=== PATIENT | male | born 1945 | race Caucasian/White ===

== ENCOUNTER 2021-03-02 05:58 | Inpatient (IN) | payer MEDICARE, OTHER ==
[~2021-03-02] VITALS: Ht 177.8 cm; Wt 86.2 kg
[~2021-03-02 05:58] MED LIST: AMLODIPINE BES2.5 MG PO; AMLODIPINE BESYL5 MG PO; ARTIFICIAL TEAR15 M4 EYERT; ASPIRIN CHEWABL81 MG PO; BRIMONIDINE EYELF; CEFUROXIME500 MG PO; DUREZOL 0.05% EYELF; ELIQUIS 5 MG TAB5 MG PO; FLOMAX 0.4 MG0.4 MG PO; IMDUR ER TAB 3030 MG PO; K-DUR TAB 20 M20 MEQ PO; LIPITOR40 MG PO; LOPRESSOR 25 MG25 MG PO; METOPROLOL TART25 MG PO; MULTAQ400 MG PO; NITROGLYCERIN0.4 MG SL; OMEPRAZOLE20 MG PO; PRINIVIL5 MG PO; PROAIR HFA8.5 GM INH; PROSCAR5 MG PO; ZOFRAN ODT 4 MG4 MG SL
[2021-03-02 06:19] LABS: HEMOGLOBIN 15.4 gm/dl (14.0-17.5); RED BLOOD COUNT 5.13 M/UL (4.20-5.50); WHITE BLOOD COUNT 10.8 K/UL (4.5-11.0)
[2021-03-02 07:01] LABS: BUN/CREATININE RATIO 22 (0-10)
[2021-03-02] MEDS ORDERED: MULTAQ 400 MG400 MG PO (14:24)
[2021-03-02] MEDS ORDERED: ELIQUIS5 MG PO (14:25)
[2021-03-02] MEDS ORDERED: METOPROLOL TART25 MG PO (14:26)
[2021-03-02] MEDS ORDERED: SYMBICORT 16010.2 GM INH (14:28)
[2021-03-03 04:42] LABS: RED BLOOD COUNT 4.71 M/UL (4.20-5.50); WHITE BLOOD COUNT 12.3 K/UL (4.5-11.0)
[2021-03-03 05:19] LABS: BUN/CREATININE RATIO 27 (0-10)
[2021-03-04 04:59] LABS: HEMOGLOBIN 13.5 gm/dl (14.0-17.5); RED BLOOD COUNT 4.32 M/UL (4.20-5.50)
[2021-03-04 05:05] LABS: WHITE BLOOD COUNT 17.6 K/UL (4.5-11.0)
[2021-03-04 05:25] LABS: BUN/CREATININE RATIO 34 (0-10)
[2021-03-05 04:30] LABS: HEMOGLOBIN 12.6 gm/dl (14.0-17.5); RED BLOOD COUNT 4.13 M/UL (4.20-5.50)
[2021-03-05 04:38] LABS: WHITE BLOOD COUNT 12.6 K/UL (4.5-11.0)
[2021-03-05 04:49] LABS: BUN/CREATININE RATIO 37 (0-10)
[2021-03-06 05:10] LABS: HEMOGLOBIN 13.4 gm/dl (14.0-17.5); RED BLOOD COUNT 4.39 M/UL (4.20-5.50); WHITE BLOOD COUNT 11.1 K/UL (4.5-11.0)
[2021-03-06 05:25] LABS: BUN/CREATININE RATIO 30 (0-10)
--- NOTE | 2021-03-06 14:01 | NUR ---
PATIENT O2 SAT 74 WHILE SITTING ON SIDE OF BED EATING WITH O2 AT 5L HIGH FLOW.
[2021-03-07 04:31] LABS: HEMOGLOBIN 12.2 gm/dl (14.0-17.5); RED BLOOD COUNT 4.05 M/UL (4.20-5.50); WHITE BLOOD COUNT 11.5 K/UL (4.5-11.0)
[2021-03-07 04:55] LABS: BUN/CREATININE RATIO 32 (0-10)
[2021-03-07] MEDS ORDERED: ELIQUIS5 MG PO (12:16)
[2021-03-07] MEDS ORDERED: SPIRIVA RESPIMAT4 GM INH (12:16)
[2021-03-07] MEDS ORDERED: IPRAT-ALBUT 0.5-3 ML NEB (12:16)
[2021-03-07] MEDS ORDERED: BROVANA15 MCG/2 M NEB (12:16)
[2021-03-07] MEDS ORDERED: PROTONIX 40 MG40 M1 PO (12:22)
[2021-03-07] MEDS ORDERED: DEXAMETHASONE2 MG PO (12:22)
[2021-03-07] MEDS ORDERED: BENZONATATE100 MG PO (12:33)
== END 2021-03-07 15:00 | disposition home or self-care (01) | DRG 177 ==
LOC: ER1 05:58 → CDU 09:32 → 3 EAST 09:32 → MED SURG 4 03-03 18:11
PROVIDERS: Family Medicine; Internal Medicine; ADMIT Internal Medicine
PROC: 8E0ZXY6 Isolation (ICD-10-PCS; principal; 2021-03-02)
PROC: XW033E5 Introduction of Remdesivir Anti-infective into Peripheral Vein, Percutaneous Approach, New Technology Group 5 (ICD-10-PCS; 2021-03-02)
PROC: 3E0333Z Introduction of Anti-inflammatory into Peripheral Vein, Percutaneous Approach (ICD-10-PCS; 2021-03-02)
PROC: XW033H5 Introduction of Tocilizumab into Peripheral Vein, Percutaneous Approach, New Technology Group 5 (ICD-10-PCS; 2021-03-02)
PROC: 5A0945A Assistance with Respiratory Ventilation, 24-96 Consecutive Hours, High Flow/Velocity Cannula (ICD-10-PCS; 2021-03-04)
DX: U07.1 COVID-19 (principal); J96.01 Acute respiratory failure with hypoxia; J15.9 Unspecified bacterial pneumonia; J12.82 Pneumonia due to coronavirus disease 2019; E87.2 Acidosis; J44.0 Chronic obstructive pulmonary disease with (acute) lower respiratory infection; E78.5 Hyperlipidemia, unspecified; I12.9 Hypertensive chronic kidney disease with stage 1 through stage 4 chronic kidney disease, or unspecified chronic kidney disease; N18.30 Chronic kidney disease, stage 3 unspecified; N40.1 Benign prostatic hyperplasia with lower urinary tract symptoms; R33.8 Other retention of urine; I48.0 Paroxysmal atrial fibrillation; I25.10 Atherosclerotic heart disease of native coronary artery without angina pectoris; F17.210 Nicotine dependence, cigarettes, uncomplicated; Z79.01 Long term (current) use of anticoagulants; Z91.14 Patient's other noncompliance with medication regimen; Z23 Encounter for immunization; Z98.42 Cataract extraction status, left eye; Z90.81 Acquired absence of spleen; Z82.49 Family history of ischemic heart disease and other diseases of the circulatory system; Z80.8 Family history of malignant neoplasm of other organs or systems; Z88.6 Allergy status to analgesic agent
CPT/HCPCS: 36415; 36600; 71045; 80048; 80053; 80202; 82550; 82553; 82728; 82803; 83605; 83874; 83880; 84484; 85025; 85027; 85379; 85384; 85610; 86140; 87040; 87205; 93005; 93970; 94640; 94664; 94760; 96374; 96375; 99285; G0378 ×2; J0248; J0696; J1100; J2185; J2930; J3370; J7030; J7070; Q0249; Q9967; U0002